=== PATIENT | female | born 1960 | race Caucasian/White ===

== ENCOUNTER → 2016-12-13 | Outpatient (CLI) | payer OTHER | LOC: FIMAGING 16:00 | PROVIDERS: ATTEND Family Medicine | DX: Z12.31 Encounter for screening mammogram for malignant neoplasm of breast (principal); Z80.3 Family history of malignant neoplasm of breast | CPT/HCPCS: G0202 ==

== ENCOUNTER → 2018-02-17 | Outpatient (CLI) | payer OTHER | LOC: FIMAGING 14:19 | PROVIDERS: ATTEND Family Medicine | DX: Z12.31 Encounter for screening mammogram for malignant neoplasm of breast (principal); Z80.3 Family history of malignant neoplasm of breast ==

== ENCOUNTER → 2018-07-06 | Outpatient (CLI) | payer OTHER | LOC: FIMAGING 10:07 | PROVIDERS: ATTEND Family Medicine | DX: R05 Cough (principal) ==